=== PATIENT | male | born 2000 | race Two or more races ===

== ENCOUNTER → 2023-07-10 | Outpatient (CLI) | payer OTHER, SELFPAY ==
[2023-07-10 12:37] LABS: Absolute Lymphocyte Count 1.92 X10^3/uL (0.83-4.51); Absolute Neutrophil Count 2.4 X10^3/uL (2.0-7.7); Basophil# 0.05 X10^3/uL; Eosinophil# 0.25 X10^3/uL; Hematocrit 50.9 % (40-54); Hemoglobin 17.4 g/dL (13.0-16.5); Lymphocyte # 1.92 X10^3/ul (0.83-4.51); Lymphocyte % 38.1 % (19-41); Mean Corp Hgb Conc 34.2 g/dL (32-36); Mean Corpuscular Hgb 30.7 pg (27.0-32.0); Mean Corpuscular Volume 89.9 fL (80-94); Mean Platelet Vol. 10.7 fl (6.2-12.0); Monocyte# 0.43 X10^3/uL; Monocyte% 8.5 % (0-10); NRBC Flagged by Analyzer 0 % (0-5); Neutrophil # 2.38 X10^3/uL (2.7-7.7); Neutrophil % 47.2 % (47-70); Platelet Count 227 K/mm3 (150-450); RBC Distribution Width CV 12.1 % (11.6-14.6); RBC Distribution Width SD 39.5 fl (35.1-43.9); Red Blood Count 5.66 M/mm3 (4.6-6.2)
[2023-07-10 12:51] LABS: ALB/GLOB Ratio 1.1 RATIO (0.9-2.4); AST(SGOT) 22 U/L (15-37); Alanine Aminotransfer ALT/SGPT 43 U/L (16-61); Alkaline Phosphatase 79 U/L (45-117); Anion Gap 4 (5-15); BUN 19 mg/dL (7-18); BUN/Creat Ratio 20.2 RATIO (10-20); Calcium,Total 8.8 mg/dL (8.5-10.1); Chloride 107 mmol/L (98-107); Cholesterol 183 mg/dL (200); Creatinine, Serum 0.94 mg/dL (0.70-1.30); EST Glomerular Filtration Rate 104 mL/min (>60); Est Glom Filt Rate - Afr Amer 126 mL/min (>60); Globulin 3.6 g/dL (2.2-4.2); Glucose 98 mg/dL (74-106); High Density Lipoprotein 38 mg/dL; Protein, Total 7.6 g/dL (6.4-8.2); Sodium Level 138 mmol/L (136-145); Triglycerides 112 mg/dL; Very Low Density Lipoprotein 22 mg/dL (5-40)
== END | disposition home or self-care (01) ==
PROVIDERS: PCP Internal Medicine; Visit Provider Internal Medicine
DX: Z00.00 Encounter for general adult medical examination without abnormal findings (principal); F41.9 Anxiety disorder, unspecified; E78.1 Pure hyperglyceridemia
CPT/HCPCS: 36415; 80053; 80061; 85025

== ENCOUNTER → 2025-06-05 | Outpatient (CLI) | payer OTHER, SELFPAY ==
[2025-06-05 15:11] LABS: Hematocrit 47.9 % (40-54); Hemoglobin 16.5 g/dL (13.0-16.5); Immature Granulocytes Count 0.040 X10^3/uL (0.0-0.0); Mean Corp Hgb Conc 34.4 g/dL (32-36); Mean Corpuscular Volume 89.5 fL (80-94); Mean Platelet Vol. 10.1 fl (6.2-12.0); NRBC Flagged by Analyzer 0 % (0-5); Platelet Count 286 K/mm3 (150-450); RBC Distribution Width CV 12.8 % (11.6-14.6); RBC Distribution Width SD 42.3 fl (35.1-43.9); Red Blood Count 5.35 M/mm3 (4.6-6.2); White Blood Count 7.8 K/mm3 (4.4-11.0)
[2025-06-05 15:45] LABS: HIV Nonreactive (Nonreactive)
[2025-06-05 15:46] LABS: AST(SGOT) 23 U/L (<=37); Alanine Aminotransfer ALT/SGPT 43 U/L (<=46); Albumin, Serum 4.1 g/dL (3.5-5.0); Alkaline Phosphatase 55 U/L (40-129); Anion Gap 13 (5-15); BUN 25 mg/dL (4-19); BUN/Creat Ratio 27.6 RATIO (10-20); Calcium,Total 9.0 mg/dL (7.6-11.0); Carbon Dioxide 22.4 mmol/L (21.0-32.0); Chloride 103 mmol/L (98-108); Globulin 2.6 g/dL (2.2-4.2); Glucose 128 mg/dL (70-99); Potassium 3.9 mmol/L (3.3-5.1)
== END | disposition home or self-care (01) ==
LOC: MTLAB 12:40
PROVIDERS: PCP Internal Medicine; Referring Provider Physician Assistant Medical; Visit Provider Physician Assistant Medical
DX: L29.89 Other pruritus (principal)
CPT/HCPCS: 36415; 80053; 84439; 84443; 85025; 86376; 86703; 86800